=== PATIENT | male | born 1995 | race Caucasian/White ===

== ENCOUNTER 2018-12-26 13:38 | Emergency (ER) | payer BC, OTHER ==
[~2018-12-26 13:38] MED LIST: CEPH-13 PO
--- NOTE | 2018-12-26 13:52 | ER Report ---
History and Physical Time Seen By MD: 13:46 Hx. of Stated Complaint: WAS PRYING A NAIL OUT OF A BOARD AND SCREWDRIVER SLIPPED AND HIT HIM IN THE EYE. VISION IN LEFT EYE 20/70, VISION IN RIGHT 20/15 HPI/ROS CHIEF COMPLAINT: Left eye injury HISTORY OF PRESENT ILLNESS: 23-year-old male patient presents to emergency room with complaint of left eye injury. Patient states that he was using a screwdriver to pop nails out of a table. He states the screwdriver slipped and hit across his eye. Patient states that he currently has pain to the lateral upper eyelid. Patient states that he does have some blurriness to his vision. He states that the eye itself doesn't hurt as bad as his eyelid. Patient has not taken any medication for this. 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 Reviewed Nurses Notes: Yes Hx Smoking: No Smoking Status: Never Smoker Hx Substance Use Disorder: No Hx Alcohol Use: No Constitutional Vital Sign - Last 24 Hours 12/26/18 12/26/18 13:43 14:47 Temp 98.8 Pulse 94 85 Resp 18 16 B/P (MAP) 139/93 148/88 (108) Pulse Ox 93 95 O2 Delivery Room Air Room Air Physical Exam General appearance: Alert no distress. Respiratory: Chest is non tender, lungs are clear to auscultation. Cardiac: Regular rate and rhythm. Eye: The left eye is injected, I was able to look underneath the upper eyelid and saw abrasion located to the lateral aspect. DIFFERENTIAL DIAGNOSIS: After history and physical exam differential diagnosis was considered for corneal abrasion, puncture injury to the left eye. Medical Decision Making ED Course/Re-evaluation ED Course Patient was admitted to exam room, history and physical were obtained. Differential diagnoses were considered. On examination lungs are clear, heart regular, abdomen soft nontender. Patient does have injection to the left eye. A fluorescein exam was done. Patient had corneal abrasion across the pupil. Patient had negative Eliseo test. Eye pressure was checked and measured 16 left eye and 15 right eye. I discussed the findings with the patient. We will go ahead and discharge him home at this time. We will put him on Tobrex eyedrops. He is using 4 times a day for the next week. I would like him follow-up with his eye doctor in the next week for reevaluation. Patient verbalized understanding and agreement with plan. Decision to Disposition Date: Dec 26, 2018 Decision to Disposition Time: 14:20 Depart Departure Latest Vital Signs Vital Signs Date Time Temp Pulse Resp B/P (MAP) Pulse Ox O2 Delivery O2 Flow Rate FiO2 12/26/18 14:47 85 16 148/88 (108) 95 Room Air 12/26/18 13:43 98.8 Impression: Primary Impression: Corneal abrasion Additional Impression: Eyelid abrasion Condition: Improved Disposition: HOME OR SELF-CARE Referrals: REYNA ESCALANTE MD (PCP) Patient Instructions: Corneal Abrasion (ED) Additional Instructions: Wear safety glasses when working. Avoid trauma to the eye. Instill eye drops: 2 drops 4 times a day for the next week. Return to the ER with any concerns. Follow up with your eye doctor in the next week. Problem Qualifiers Primary Impression: Corneal abrasion Encounter type: initial encounter Laterality: left Qualified Codes: S05.02XA - Injury of conjunctiva and corneal abrasion without foreign body, left eye, initial encounter Additional Impression: Eyelid abrasion Encounter type: initial encounter Laterality: left Qualified Codes: S00.212A - Abrasion of left eyelid and periocular area, initial encounter JOYCE BOO Dec 26, 2018 13:52
[2018-12-26] MEDS ORDERED: FLUORESCEIN SOD 1 MG 1 EA STRP OS ONE (13:55)
[2018-12-26] MEDS ORDERED: PROPARACAINE 0.5% OP 15ML BTL OS ONE (13:55)
[2018-12-26] MEDS ORDERED: TOBRAMYCIN 0.3% OP SOLN 5 ML OS ONE (14:20)
[2018-12-26 14:47] VITALS: BP 148/88
== END 2018-12-26 14:48 | disposition home or self-care (01) ==
LOC: ER 14:04
DX: S05.02XA Injury of conjunctiva and corneal abrasion without foreign body, left eye, initial encounter (principal); S00.212A Abrasion of left eyelid and periocular area, initial encounter
CPT/HCPCS: 99282